=== PATIENT | female | born 1970 | race Caucasian/White ===

== ENCOUNTER → 2023-02-25 | Day surgery (SDC) | payer OTHER ==
[~2023-02-25] MED LIST: ALEVE220 M1 PO; CLARITIN10 MG PO; FENTANYL CITRATE/PF 100MCG/2 ML INJ ONE; LACTATED RINGER'S 1,000 ML ONE; MIDAZOLAM HCL 2 MG/2 ML VIAL ONE; OR PHACO EYE KIT ONE; PHENTERMINE H37.5 MG PO; PREOP PHACO EYE KIT ONE
[2023-02-25 07:43] VITALS: TEMP 97.4
[2023-02-25 08:00] VITALS: BP 119/84; PULSE 62; RESP 16; O2SAT 99
== END | disposition home or self-care (01) ==
LOC: OR 05:12
PROVIDERS: ATTEND Ophthalmology
DX: H26.9 Unspecified cataract (principal); N20.0 Calculus of kidney; Z11.52 Encounter for screening for COVID-19; Z01.810 Encounter for preprocedural cardiovascular examination; Z01.812 Encounter for preprocedural laboratory examination; Z79.1 Long term (current) use of non-steroidal anti-inflammatories (NSAID)
CPT/HCPCS: 0223U; 36415; 66984; 93005; J2250; J3010; J7121; V2632